=== PATIENT | female | born 1950 | race Caucasian/White ===

== ENCOUNTER 2018-03-04 05:30 | Day surgery (SDC) | payer OTHER | END 2018-03-04 09:45 | disposition home or self-care (01) | LOC: AMB-ENDOS 05:30 | DX: D12.4 Benign neoplasm of descending colon (principal) ==

== ENCOUNTER 2019-08-11 06:27 | Day surgery (SDC) | payer OTHER | END 2019-08-11 13:30 | disposition home or self-care (01) | LOC: AMB-ENDOS 06:27 → ADM 09-08 12:00 | PROVIDERS: ATTEND Surgery | DX: D12.2 Benign neoplasm of ascending colon (principal); D12.4 Benign neoplasm of descending colon ==